=== PATIENT | male | born 1985 | race Two or more races ===

== ENCOUNTER 2021-08-30 18:15 | Emergency (ER) | payer OTHER ==
[2021-08-30 18:33] VITALS: BP 133/90; PULSE 75; TEMP 98.3; BMI 21.7
[2021-08-30] MEDS ORDERED: IBUPROFEN 400 MG TABLET (FP) PO ONE ×2 (18:34→18:38)
== END 2021-08-30 19:55 | disposition home or self-care (01) ==
LOC: FER 18:15
DX: U07.1 COVID-19 (principal); R10.9 Unspecified abdominal pain
CPT/HCPCS: 71045-TC-FY; 93005; 99284-25

== ENCOUNTER 2022-09-23 21:50 | Emergency (ER) | payer OTHER ==
[2022-09-23] MEDS ORDERED: ONDANSETRON 4 MG/2 ML VIAL IVPUSH ONE (21:55)
[2022-09-23] MEDS ORDERED: SODIUM CHLORIDE 0.9% 1000 ML INFUS.BAG IV ONE (21:55)
[2022-09-23] MEDS ORDERED: FAMOTIDINE 20 MG/50 ML IVPB 20 MG/50 ML MG IVPB ONE ×2 (21:55→21:57)
[2022-09-23] MEDS ORDERED: ONDANSETRON 4 MG/2 ML VIAL ONE (21:57)
[2022-09-23 22:05] VITALS: BP 122/84; PULSE 105; RESP 18; TEMP 97.7; BMI 21.1
[2022-09-23 22:30] LABS: ALBUMIN 4.9 g/dl (3.4-5.0); BILIRUBIN,TOTAL 2.1 mg/dl (0.2-1); CALCIUM 10.2 mg/dl (8.5-10); TOT PROT 7.8 g/dl (6.4-8.2)
[2022-09-23 23:03] LABS: HEMATOCRIT 46.4 % (35.4-49); HEMOGLOBIN 16.4 G/dL (11.7-16.9); MCH 31.2 pg (25.7-33.7); MCHC 35.4 g/dl (32.0-35.9); MEAN CELL VOLUME 88.2 fl (80-96); MEAN PLT VOLUME 7.8 fl (7.5-11.1); PLATELET COUNT 211.7 10^3/uL (134-434); RBC 5.26 10^6/uL (4.00-5.60); RDW 13.7 % (11.9-15.9); WHITE BLOOD COUNT 13.1 10^3/uL (4.0-10.8)
[2022-09-23 23:10] LABS: PLATELET ESTIMATE ADEQUATE
== END 2022-09-23 23:53 | disposition home or self-care (01) ==
LOC: FER 21:50
PROC: 3E033GC Introduction of Other Therapeutic Substance into Peripheral Vein, Percutaneous Approach (ICD-10-PCS; principal; 2022-09-23)
PROC: 3E033GC Introduction of Other Therapeutic Substance into Peripheral Vein, Percutaneous Approach (ICD-10-PCS; 2022-09-23)
DX: K52.9 Noninfective gastroenteritis and colitis, unspecified (principal); R11.2 Nausea with vomiting, unspecified; R19.7 Diarrhea, unspecified
CPT/HCPCS: 36415; 76705-TC; 80053; 83690; 85027; 99284-25